=== PATIENT | female | born 1995 | race Two or more races ===

== ENCOUNTER 2019-09-26 12:28 | Emergency (ER) | payer SELFPAY ==
[~2019-09-26] VITALS: Ht 160 cm; Wt 131.4 kg
[2019-09-26 12:40] VITALS: BP 142/99
--- NOTE | 2019-09-26 14:39 | NUR ---
NOTIFIED BY REG THAT PT REQ DC. UNABLE TO SPEAK C PT THEY HAVE ALREADY LEFT.
== END 2019-09-26 14:43 | disposition left against medical advice (07) ==
LOC: ED 14:40
DX: O20.9 Hemorrhage in early pregnancy, unspecified (principal); O21.8 Other vomiting complicating pregnancy; Z53.21 Procedure and treatment not carried out due to patient leaving prior to being seen by health care provider